=== PATIENT | female | born 1985 | race Caucasian/White ===

== ENCOUNTER 2020-08-18 16:05 | Emergency (ER) | payer OTHER ==
[~2020-08-18] VITALS: Ht 177.8 cm; Wt 84.1 kg
[2020-08-18] MEDS ORDERED: normal saline 1000ml 1,000 ML IV ONE ×2 (16:10→17:25)
[2020-08-18] MEDS ORDERED: normal saline 1000ML IV soln IVB ONE (16:10)
[2020-08-18 16:44] LABS: BASOPHILS % (AUTO) 0.3 % (0-1); EOSINOPHILS % (AUTO) 0 % (0-6); HEMOGLOBIN 13.8 g/dl (12.0-16.0); LYMPHOCYTES # (AUTO) 0.7 X10'3 (1.1-4.8); LYMPHOCYTES % (AUTO) 12.3 % (21-51); MEAN CORPUSCULAR HEMOGLOBIN 32.2 PG (27.0-31.0); MEAN CORPUSCULAR HGB CONC 33.8 g/dL (33.0-36.5); MEAN CORPUSCULAR VOLUME 95.1 FL (78-98); MEAN PLATELET VOLUME 7.6 FL (7.4-10.4); MONOCYTES # (AUTO) 0.5 X10'3 (0-0.9); MONOCYTES % (AUTO) 9.7 % (2-12); NEUTROPHILS # (AUTO) 4.4 X10'3 (1.8-7.7); NEUTROPHILS % (AUTO) 77.7 % (42-75); PLATELET COUNT 185 X10'3 (140-440); RED BLOOD COUNT 4.31 X10'6 (4.20-5.60); RED CELL DISTRIBUTION WIDTH 12.8 % (11.5-14.5); WHITE BLOOD COUNT 5.6 X10'3 (4.5-11.0)
[2020-08-18 17:06] LABS: PARTIAL THROMBOPLASTIN TIME 29 SECONDS (22-32)
[2020-08-18 17:09] LABS: D-DIMER < 0.19 MG/L FEU (0-0.50)
[2020-08-18 17:12] LABS: ALANINE AMINOTRANSFERASE 35 U/L (12-78); ALBUMIN 4.1 G/DL (3.4-5.0); ALBUMIN/GLOBULIN RATIO 1.1 (1.1-1.5); ALKALINE PHOSPHATASE 30 IU/L (46-116); ANION GAP 11 (8-16); ASPARTATE AMINO TRANSFERASE 40 U/L (10-37); BILIRUBIN,TOTAL 0.4 MG/DL (0.1-1.0); CALCIUM 8.6 MG/DL (8.5-10.1); CHLORIDE 106 MMOL/L (99-107); CREATININE 0.96 MG/DL (0.40-0.90); GLUCOSE 102 MG/DL (70-104); MAGNESIUM 1.9 MG/DL (1.5-2.4); POTASSIUM 3.4 MMOL/L (3.5-5.1); SODIUM 142 MMOL/L (135-145); TOTAL CARBON DIOXIDE 25.1 MMOL/L (24-32); TOTAL PROTEIN 7.8 G/DL (6.4-8.2); eGFR 67 ML/MIN
[2020-08-18 17:17] LABS: BLOOD UREA NITROGEN 7 MG/DL (7-18); BUN/CREATININE RATIO 7.3 (6.6-38.0)
--- NOTE | 2020-08-18 17:17 | NUR ---
covid swab send out
[2020-08-18 17:31] LABS: HCG SERUM QL NEGATIVE
--- NOTE | 2020-08-18 17:33 | NUR ---
Pt states she is unable to give UA at this time. Fluids infusing as ordered.
--- NOTE | 2020-08-18 17:40 | NUR ---
Port xray at bedside.
--- NOTE | 2020-08-18 18:13 | NUR ---
FRIAS CATHETER GAUGE 16 INSERTED, URINE CLOUDY.
[2020-08-18 18:36] LABS: CLARITY,URINE CLOUDY (Clear); COLOR,URINE YELLOW (Yellow); GLUCOSE, URINE NEGATIVE (Neg); KETONES,URINE NEGATIVE (Neg); LEUKOCYTE ESTERASE ,URINE TRACE (Neg); NITRITES, URINE NEGATIVE (Neg); OCCULT BLOOD,URINE NEGATIVE (Neg); PROTEIN,URINE NEGATIVE (Neg); UROBILINOGEN,URINE 0.2 E.U/dL (0.2-1.0)
--- NOTE | 2020-08-18 18:39 | NUR ---
[facility] [place] NUMBER [phone]
[2020-08-18 18:45] LABS: UA COLLECTION TYPE CLN CATCH MIDSTREAM
[2020-08-18 18:46] LABS: RBC,URINE NONE SEEN /HPF (0-2); SQUAMOUS EPITHELIAL CELL,UR MANY /LPF (FEW)
[2020-08-18 18:47] LABS: BACTERIA,URINE 3+ /HPF (Neg)
[2020-08-18] MEDS: acetaminophen 325mg tablet PO ONE ×3 (19:35→21:04)
[2020-08-18] MEDS ORDERED: ketorolac trometh. 30mg/ml inj. IV ONE (19:40)
[2020-08-18] MEDS ORDERED: ondansetron/PF 4mg/2ml inj IV ONE (19:40)
--- NOTE | 2020-08-18 19:42 | NUR ---
TEMP ORALLY 103.1, PT REPORTS SEVERE LIVE. ATTEMPTED TO GIVE TYLENOL PO, BUT PT IS VERY NAUSEAUS. STATES SHE DOSE NOT WANT TO TAKE IT RECTALLY SHE IS ALSO HAVING DIARRHEA. DR. SMITH UPDATED AND NEW ORDERS RECEIVED. PT IS DC READY , BUT CURRENTLY MED WAIT AND WILL WAIT UNTIL TEMP TRENDING DOWN.
[2020-08-18 21:02] VITALS: BP 107/71
== END 2020-08-19 01:00 | disposition home or self-care (01) ==
LOC: ER 16:06
DX: U07.1 COVID-19 (principal); R50.9 Fever, unspecified
CPT/HCPCS: 36415; 71045; 80053; 81001; 83605; 83735; 84145; 84484; 84703; 85025; 85379; 85384; 85610; 85730; 86140; 93005; 96361; 96374; 96375; 99285; J1885; J2405; J7030

== ENCOUNTER 2020-08-23 02:09 | Emergency (ER) | payer OTHER ==
[~2020-08-23] VITALS: Ht 172.7 cm; Wt 81.8 kg
[2020-08-23 02:18] VITALS: BP 120/82
[2020-08-23] MEDS ORDERED: normal saline 1000ml 1,000 ML IV ONE (02:50)
[2020-08-23] MEDS ORDERED: ondansetron/PF 4mg/2ml inj IV ONE (02:50)
[2020-08-23] MEDS ORDERED: iohexol 350MG/ML 100ml bottle IV ONE (03:13)
[2020-08-23 03:24] LABS: BASOPHILS % (AUTO) 0.2 % (0-1); EOSINOPHILS % (AUTO) 0 % (0-6); HEMATOCRIT 38.3 % (35.0-45.0); HEMOGLOBIN 13.1 g/dl (12.0-16.0); LYMPHOCYTES # (AUTO) 0.9 X10'3 (1.1-4.8); LYMPHOCYTES % (AUTO) 17.4 % (21-51); MEAN CORPUSCULAR HEMOGLOBIN 31.5 PG (27.0-31.0); MEAN CORPUSCULAR HGB CONC 34.1 g/dL (33.0-36.5); MEAN CORPUSCULAR VOLUME 92.4 FL (78-98); MEAN PLATELET VOLUME 7.7 FL (7.4-10.4); MONOCYTES # (AUTO) 0.3 X10'3 (0-0.9); MONOCYTES % (AUTO) 6.9 % (2-12); NEUTROPHILS # (AUTO) 3.8 X10'3 (1.8-7.7); NEUTROPHILS % (AUTO) 75.5 % (42-75); PLATELET COUNT 163 X10'3 (140-440); RED BLOOD COUNT 4.15 X10'6 (4.20-5.60); RED CELL DISTRIBUTION WIDTH 12.4 % (11.5-14.5)
[2020-08-23 03:29] LABS: ALBUMIN 3.6 G/DL (3.4-5.0); ANION GAP 6 (8-16); BLOOD UREA NITROGEN 13 MG/DL (7-18); BUN/CREATININE RATIO 15.3 (6.6-38.0); CALCIUM 8.2 MG/DL (8.5-10.1); CHLORIDE 103 MMOL/L (99-107); CREATININE 0.85 MG/DL (0.40-0.90); GLUCOSE 121 MG/DL (70-104); POTASSIUM 3.4 MMOL/L (3.5-5.1); SODIUM 140 MMOL/L (135-145); TOTAL CARBON DIOXIDE 31.3 MMOL/L (24-32); eGFR 77 ML/MIN
== END 2020-08-23 06:05 | disposition home or self-care (01) ==
LOC: ER 02:09
DX: U07.1 COVID-19 (principal); R05 Cough
CPT/HCPCS: 36415; 71275; 80048; 85025; 96361; 96374; 99285; J2405; J7030; Q9967